=== PATIENT | female | born 1925 | race Caucasian/White ===

== ENCOUNTER 2016-09-14 08:49 | Observation (INO) | payer MEDICARE, OTHER ==
[2016-09-14] MEDS ORDERED: Sodium Chloride 0.9% 10 ML Syringe FLUSH PRN (09:00)
[2016-09-14 09:43] LABS: CHLORIDE,CL 108 mmol/L (98-107); SODIUM,NA 143 mmol/L (136-145)
[2016-09-14] MEDS ORDERED: Ketorolac 30 MG/ML SDV IVPUSH ONE (10:36)
[2016-09-14] MEDS ORDERED: Morphine 4 MG/ML Syringe IVPUSH ONE (10:49)
[2016-09-14] MEDS: Levofloxacin/Dextrose 5%-Water 500 MG in Premix Bag 1 BAG IV SCH (15:29)
[2016-09-14] MEDS ORDERED: Sodium Chloride 0.9% 100 ML IV SCH (16:00)
[2016-09-14] MEDS ORDERED: Aspirin 325 MG Tab.EC PO PRN (17:16)
[2016-09-14] MEDS: Enoxaparin 40 MG/0.4 ML Syringe SUBCUT SCH (19:45)
[2016-09-14] MEDS: Calcium Carbonate/Vitamin D3 1250 MG-200 Unit Tab PO SCH (19:46)
[2016-09-14] MEDS: Ibuprofen Susp 100 MG/5 ML 5 ML UD Cup PO PRN (19:51)
[2016-09-15] MEDS: oxyCODONE 5 MG Tab PO PRN (01:22)
[2016-09-15] MEDS: Levothyroxine 100 MCG Tab PO SCH (06:29)
[2016-09-15] MEDS: Ibuprofen Susp 100 MG/5 ML 5 ML UD Cup PO PRN ×2 (06:29→13:44)
[2016-09-15 06:58] LABS: CHLORIDE,CL 105 mmol/L (98-107); SODIUM,NA 141 mmol/L (136-145)
[2016-09-15] MEDS: Multivitamins with Iron/Calcium/Folic Acid/Minerals Tab PO SCH (07:37)
[2016-09-15] MEDS: predniSONE 10 MG Tab PO SCH (07:37)
[2016-09-15] MEDS: Calcium Carbonate/Vitamin D3 1250 MG-200 Unit Tab PO SCH ×2 (07:37→19:20)
[2016-09-15] MEDS: amLODIPine 10 MG Tab PO SCH (07:37)
[2016-09-15] MEDS: Potassium Chloride 20 MEQ Tab.ER PO SCH (07:37)
--- NOTE | 2016-09-15 12:11 | ER ---
Date of Service: 09/14/2016 SUBJECTIVE: Jenn presents to the emergency room with complaints of right-sided pain. The patient complained of superficial pain to her scalp, pain to the right side of her face, pain to her right lateral chest, right abdomen, and to the muscles of her right arm as well as the muscles to her right lower extremity. The patient also complained of some mild dyspnea. The patient had undergone surgical repair of a rectocele. Her back is extremely kyphotic, and on observing the patient, she is noted to when lying on her back, does lay primarily on her right side. She was experiencing this discomfort immediately after surgery. She states that she underwent the surgery on Tuesday and states that she was discharged on Tuesday. The discomfort got worse yesterday and today has been improving. Again, the patient has also been experiencing some mild dyspnea and weakness. She states she has not been experiencing any chest pain, nausea, vomiting, or diarrhea. She did undergo general anesthesia for her rectocele repair. PAST MEDICAL HISTORY: 1. Polymyalgia rheumatica. 2. Hypertension. 3. Hypothyroidism. 4. Chronic pancreatitis. MEDICATIONS: 1. Aspirin 650 mg p.o. q.4 hours p.r.n. 2. Amlodipine 10 mg p.o. at bedtime. 3. Prednisone 10 mg daily. 4. Klor-Con 20 mEq p.o. daily. 5. Naproxen sodium 440 mg p.o. b.i.d. p.r.n. 6. Levothyroxine 100 mcg p.o. at breakfast. ALLERGIES: Penicillin and procaine. REVIEW OF SYSTEMS: General: Denies any fever or chills. HEENT: No sore throat, rhinorrhea, or congestion. Respiratory: Complains of mild dyspnea and cough. Cardiac: Denies any substernal chest pain. No jaw, arm, neck, or back pain. GI: No nausea, vomiting, or diarrhea. No melena, hematochezia, or hematemesis. : Denies any dysuria. Musculoskeletal: Again, complains of myalgia to the right side of her body. This again involves the patient's scalp, the muscles of her right upper and lower extremity, to the right side of her chest wall, the right side of her abdomen. Neurologic: No fainting, blackouts, lightheadedness. PHYSICAL EXAMINATION: General: This is an 89-year-old female patient, who is in no acute distress. Vital Signs: Blood pressure is 164/70, pulse rate 75, temperature is 37.1, respiratory rate is 20, O2 saturation is 99% on oxygen per nasal cannula at 2 L/minute. Skin: Warm, pink, and dry. HEENT: Head is normocephalic atraumatic. Eyes, PERRLA. Extraocular movements are intact. Ears, TMs are clear. Mouth, oral mucosa is moist. Lungs: Clear to auscultation. Heart: Regular rate and rhythm. Normal S1, S2. No S3, S4, murmurs, clicks, or rubs. Abdomen: Soft, nontender. There is no hepatosplenomegaly or masses noted. Extremities: Without edema. Musculoskeletal: Again, the patient does complain of increased discomfort on palpation of both her upper and lower extremities as well as palpation to the muscles on the right side of her body. Neurologic: Cranial nerves 2 through 12 are intact. Her speech is fluent. Her gait is within normal limits. She has no pronator drift. No facial droop noted. No speech deficit noted. No pathological neurologic symptoms noted on physical examination. IMAGING DATA: EKG was obtained showing a sinus rhythm without any acute ST or T- wave abnormalities. LABORATORY DATA: WBC 4.5, hemoglobin is 10.0, platelets are 209. Coags, PT is 10.5, INR is 0.5. Chemistry, sodium is 143, potassium is 3.5, chloride is 108, bicarb is 28, BUN is 8, creatinine is 0.8. GFR is greater than 60. Glucose is 94, lactic acid is 0.6, calcium is 8.6, corrected calcium is 9.32. Total bilirubin is 0.5. AST is 21, ALT is 18, alkaline phosphatase is 69, CK is 52, CK-MB is 1.3. Total protein is 6.9, albumin is 3.1, TSH is 1.010. Urinalysis, she did have a slightly cloudy specimen, pH was 7.5, specific gravity is 1.015. She did have moderate occult blood, small leukocyte esterase, negative for nitrites, glucose, ketones, and protein. PA and lateral chest x-ray was obtained. She did have evidence of some increased hilar opacifications consistent with the start of bilateral infiltrates. She also did have a small left-sided pleural effusion. ASSESSMENT: 1. Postoperative musculoskeletal pain. 2. Community-acquired versus postoperative acquired pneumonia. PLAN: At this point, we will start the patient on Levaquin 500 mg IV daily. The patient's CPK is negative. Certainly, she could be experiencing some myalgias secondary to the use of succinylcholine during her surgery. This could have exacerbated her polymyalgia rheumatica. She is not experiencing any other focal neuro symptoms, so does not appear that this is a neurological issue and likely is secondary to positioning of the patient during surgery as she is unable to lie flat on her back. We will have PT and OT work with the patient. We will continue with IV antibiotics and rehydrate the patient. All questions were answered. MWK: 09/14/2016 15:33:35 MODL: 09/14/2016 22:33:24 /[id number]
--- NOTE | 2016-09-15 12:56 | ER ---
Date of Service: 09/14/2016 SUBJECTIVE: The patient presented to the emergency room with complaints of pain to her right side. She was transported by [facility] ambulance. The patient underwent rectocele repair on 09/10/2016 and was discharged on 09/12/2016. She states that she noticed immediately after surgery she was experiencing pain to the right side of her scalp, to her right upper extremity, and to her right lower extremity. She states that she is also experiencing some shortness of breath and weakness. To note, the patient did undergo general anesthesia and does have a history of polymyalgia rheumatica. The patient states that the discomfort did resolve somewhat, but has since redeveloped. She states that the discomfort began improving again approximately 24 hours ago. PAST MEDICAL HISTORY: MEDICATIONS: 1. Prednisone 10 mg daily. 2. Multivitamin one daily. 3. Calcium plus D 600/200 one b.i.d. 4. Amlodipine 10 mg daily. 5. Potassium chloride 20 mEq daily. 6. Levothyroxine 100 mcg p.o. at breakfast. 7. Aspirin 650 mg p.o. q.4 hours p.r.n. 8. Oxycodone 5 mg p.o. q.4 hours p.r.n. 9. Senna/docusate one p.o. daily p.r.n. 10.Ibuprofen 600 mg p.o. t.i.d. ALLERGIES: Penicillin, procaine, and meperidine. REVIEW OF SYSTEMS: General: Positive for weakness and fatigue. HEENT: Denies any sore throat, rhinorrhea, or congestion. Respiratory: Complains of mild dyspnea and mild cough. Cardiac: Denies any substernal chest pain. Denies any palpitations. Gastrointestinal: No nausea, vomiting, or diarrhea. No melena, hematochezia, or hematemesis. Genitourinary: Denies any dysuria. Musculoskeletal: Again, complains of myalgia to her right upper and lower extremity and to the muscles and soft tissue of her face and scalp. Neurologic: No fainting, blackouts, or lightheadedness. PHYSICAL EXAMINATION: General: An 89-year-old female patient who is in no acute distress. Vital Signs: Blood pressure is 164/70, temperature is 37.1, pulse rate is 75, and O2 saturation is 99% on oxygen per nasal cannula at 2 L/minute. She does desaturate into the mid to low 80s on room air. Skin: Warm, pale, and dry. HEENT. Head is normocephalic and atraumatic. No scalp or facial erythema, trauma, or ecchymosis noted. Eyes: PERRLA. Extraocular movements are intact. No evidence of any acute facial droop. 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 She has no other facial droop. Her eyebrow raise is symmetrical. Smile is symmetrical. Neck: Supple without masses. There is no lymphadenopathy. Spine: No midline C-spine, thoracic, or lumbar discomfort noted on palpation. Chest: No retractions noted. Lungs: Clear to auscultation. Heart: Regular rate and rhythm. Abdomen: Soft and nontender. There is no hepatosplenomegaly or masses noted. Extremities: Without edema. She has approximately 3/5 strength in both her upper and lower extremities. Again, she does complain of increased discomfort on palpation of the muscles of her upper and lower extremities. Neurovascular: Circulation, sensation, and motor function are all within normal limits in the distal portion of her extremities. Neurologic: Cranial nerves 2 through 12 are intact. Her speech is fluent. Her gait is within normal limits. Romberg is negative. She has no pronator drift. Negative neurologic examination. DIAGNOSTIC DATA: CT scan of the patient's brain and C-spine were obtained and were negative for acute pathology. CBC: WBCs 4.5, hemoglobin is 10.0, and platelets are 209. PT is 10.5. INR is 0.9. Chemistry: Sodium is 143, potassium is 3.5, chloride is 108, bicarbonate is 28, BUN is 8, creatinine is 0.8, GFR is greater than 60, and glucose is 94. Lactic acid is 0.6. Calcium is 8.6. Corrected calcium is 9.32. Total bilirubin is 0.5. AST is 21, ALT is 18, and alkaline phosphatase is 69. CK is 52 and CK-MB is 1.3. Total protein is 6.9. Albumin is 3.1. TSH is 1.01. Urinalysis reveals specific gravity of 1.015, pH of 7.5. Negative for protein, glucose, and ketones. Did have moderate occult blood. Negative nitrites and bilirubin. Small leukocyte esterase. PA and lateral chest x-ray was obtained. She did have evidence of what appears to be a developing bronchopneumonia. Blood cultures x2 were obtained and are pending. ASSESSMENT: 1. Community-acquired versus healthcare-acquired pneumonia. 2. Myalgias to right side of body secondary to polymyalgia rheumatica versus anesthesia-associated myalgia or patient positioning. PLAN: The patient will be admitted. She was started on Levaquin 500 mg p.o. daily. Did start her on normal saline at 125 an hour. We will consult PT and OT as well as Material Worker. At this point, we will admit her to observation as she is too weak to ambulate and do her ADLs on her own at home. The patient is a do not resuscitate/do not intubate. Please use as H\T\P. MWK: 09/15/2016 11:56:40 MODL: 09/15/2016 12:42:12 /[id number] MTDD
--- NOTE | 2016-09-15 12:58 | PCM.PN ---
- General Info Date of Service: 09/15/16 Admission Dx/Problem (Free Text): Community vs. post operative acquired pneumonia Functional Status: Reports: pain controlled, incentive spirometry Pain Score: 5 - Review of Systems General: Reports: Weakness HEENT: Reports: no symptoms Pulmonary: Reports: shortness of breath (still somewhat short of breath but she does state that this is lessened.) Cardiovascular: Reports: No Symptoms Gastrointestinal: Reports: No symptoms Genitourinary: Reports: no symptoms Musculoskeletal: Reports: shoulder pain (all pain is to the right side, from her head and neck to mid thigh), arm pain, back pain, leg pain Skin: Reports: no symptoms Neurological: Reports: No Symptoms Psychiatric: Reports: no symptoms - Patient Data Vitals - most recent: Last Vital Signs Temp 36.4 C 09/15/16 10:00 Pulse 79 09/15/16 10:00 Resp 16 09/15/16 10:00 BP 141/84 H 09/15/16 10:00 Pulse Ox 97 09/15/16 10:00 Weight - most recent: 68.039 kg I&O - last 24 hours: Intake & Output 09/14/16 09/15/16 09/15/16 22:59 06:59 14:59 Intake Total 250 400 690 Output Total 200 Balance 50 400 690 Lab Results last 24 hrs: Laboratory Results - last 24 hr 09/15/16 09/15/16 Range/Units 06:18 06:18 WBC 3.0 L (4.0-10.0) x10^3/uL RBC 3.34 L (4.00-5.50) x10^6/uL Hgb 9.5 L (12.0-16.0) g/dL Hct 28.5 L (33.0-47.0) % MCV 85.3 (78.0-93.0) fL MCH 28.4 (26.0-32.0) pg MCHC 33.3 (32.0-36.0) g/dL RDW Coeff of [place] 14.5 (10.0-15.0) % Plt Count 175 (130-400) x10^3/uL Sodium 141 (136-145) mmol/L Potassium 3.5 (3.5-5.1) mmol/L Chloride 105 (98-107) mmol/L Carbon Dioxide 29 (21-32) mmol/L BUN 9 (7-18) mg/dL Creatinine 0.8 (0.55-1.02) mg/dL Est Cr Clr Drug Dosing 38.44 mL/min Estimated GFR (MDRD) > 60 Glucose 83 (74-106) mg/dL Calcium 8.6 (8.5-10.1) mg/dL Corrected Calcium 9.64 (8.5-10.1) mg/dL Total Bilirubin 0.4 (0.2-1.0) mg/dL AST 18 (15-37) U/L ALT 16 (14-59) U/L Alkaline Phosphatase 60 (46-116) U/L Total Protein 6.3 L (6.4-8.2) g/dL Albumin 2.7 L (3.4-5.0) g/dL Globulin 3.6 Albumin/Globulin Ratio 0.75 Howie Results last 24 hrs: Microbiology 09/14/16 13:55 Anaerobic Blood Culture - Final Blood - Venous - Lab Draw Med Orders - Current: Current Medications Amlodipine Besylate (Norvasc) 10 mg PO DAILY [facility] Last Admin: 09/15/16 07:37 Dose: 10 mg Aspirin (Ecotrin) 650 mg PO Q4H PRN PRN Reason: Pain Calcium Carbonate (Calcium Carbonate/Vitamin D 1250 Mg-200 Unit) 1 tab PO BID [facility] Last Admin: 09/15/16 07:37 Dose: 1 tab Enoxaparin Sodium (Lovenox) 40 mg SUBCUT BEDTIME [facility] Last Admin: 09/14/16 19:45 Dose: 40 mg Levofloxacin/Dextrose 500 mg/ (Premix) 100 mls @ 100 mls/hr IV Q24H [facility] Last Admin: 09/14/16 15:29 Dose: 100 mls/hr Sodium Chloride (Normal Saline) 100 mls @ 100 mls/hr IV ASDIRECTED [facility] Last Admin: 09/14/16 17:10 Dose: 100 mls/hr Ibuprofen (Motrin 100 Mg/5 Ml Susp) 400 mg PO Q6H PRN PRN Reason: Pain Last Admin: 09/15/16 06:29 Dose: 400 mg Levothyroxine Sodium (Synthroid) 100 mcg PO ACBREAKFAST [facility] Last Admin: 09/15/16 06:29 Dose: 100 mcg Multivitamins/Minerals (Thera M Plus) 1 tab PO DAILY [facility] Last Admin: 04/12/17 07:37 Dose: 1 tab Oxycodone HCl (Oxycodone) 5 mg PO Q4H PRN PRN Reason: Pain Last Admin: 09/15/16 01:22 Dose: 5 mg Potassium Chloride (Klor-Con M20) 20 meq PO DAILY [facility] Last Admin: 09/15/16 07:37 Dose: 20 meq Prednisone (Prednisone) 10 mg PO DAILY [facility] Last Admin: 09/15/16 07:37 Dose: 10 mg Senna/Docusate Sodium (Senna Plus) 1 tab PO DAILY PRN PRN Reason: Constipation Last Admin: 09/15/16 08:04 Dose: 1 tab Sodium Chloride (Saline Flush) 10 ml FLUSH ASDIRECTED PRN PRN Reason: Keep Vein Open Last Admin: 09/15/16 07:45 Dose: 10 ml Discontinued Medications Ketorolac Tromethamine (Toradol) 30 mg IVPUSH ONETIME ONE Stop: 09/14/16 10:37 Last Admin: 09/14/16 10:53 Dose: 30 mg Morphine Sulfate (Morphine) 4 mg IVPUSH ONETIME ONE Stop: 09/14/16 10:50 Last Admin: 09/14/16 10:56 Dose: 4 mg - Exam General: alert, oriented, cooperative, no acute distress HEENT: Pupils equal, Pupils reactive, EOMI Neck: supple Lungs: Crackles (to bilateral bases) Cardiovascular: Regular Rate, Regular Rhythm, Murmurs (systolic murmur) Abdomen: bowel sounds present, soft, no tenderness, no distension Back Exam: decreased range of motion Extremities: no edema, normal pulses, no tenderness/swelling, no clubbing Peripheral Pulses: 2+: posterior tibial (L), posterior tibial (R), dorsalis pedis (L), dorsalis pedis (R) Skin: warm, dry, intact Neurological: no new focal deficit Psy/Mental Status: alert, normal affect, normal mood Physical Findings Comments:: Patient has long standing polymyalgia rheumatica and likely her pain is related to positioning during cystocele repair, as well as from her sedation for the procedure. Largely labs are unchanged from yesterday. - Problem List & Annotations (1) Community acquired pneumonia SNOMED Code(s): 478426684 Code(s): J18.9 - PNEUMONIA, UNSPECIFIED ORGANISM Status: Acute Priority: Medium Current Visit: Yes - Problem List Review Problem List Initiated/Reviewed/Updated: Yes - Assessment Assessment:: pneumonia healthcare vs. community acquired - Plan Plan:: Start on incentive spirometry ambulate Continue Levaquin 500 mg q 24h hours x 5 days OT and PT to continue to instruct on exercises and methods for pain reduction
[2016-09-15] MEDS ORDERED: Ibuprofen 200 MG Tab PO PRN (13:53)
[2016-09-15] MEDS: Levofloxacin/Dextrose 5%-Water 500 MG in Premix Bag 1 BAG IV SCH (14:13)
[2016-09-15] MEDS ORDERED: Magnesium Citrate Solution 296 ML Bottle PO PRN (17:01)
[2016-09-15] MEDS: Enoxaparin 40 MG/0.4 ML Syringe SUBCUT SCH (19:20)
[2016-09-16] MEDS: oxyCODONE 5 MG Tab PO PRN (04:00)
[2016-09-16] MEDS: Levothyroxine 100 MCG Tab PO SCH (06:06)
[2016-09-16] MEDS: predniSONE 10 MG Tab PO SCH (07:42)
[2016-09-16] MEDS: Multivitamins with Iron/Calcium/Folic Acid/Minerals Tab PO SCH (07:42)
[2016-09-16] MEDS: Potassium Chloride 20 MEQ Tab.ER PO SCH (07:42)
[2016-09-16] MEDS: Calcium Carbonate/Vitamin D3 1250 MG-200 Unit Tab PO SCH (07:42)
[2016-09-16] MEDS: amLODIPine 10 MG Tab PO SCH (07:43)
[2016-09-16 07:44] VITALS: BP 132/84
--- NOTE | 2016-09-16 16:57 | ER ---
Date of Service: 09/14/2016 This emergency room note may be used as a patient's admission H\T\P. MWK: 09/16/2016 07:23:54 MODL: 09/16/2016 11:22:45 /[id number]
--- NOTE | 2016-09-17 01:48 | DISCH ---
ADMITTING PROVIDER: Genaro Webb PA-C. DISCHARGING PROVIDER: Genaro Webb PA-C. ADMISSION DIAGNOSIS: Community-acquired pneumonia. DISCHARGE DIAGNOSIS: Community-acquired pneumonia. SUBJECTIVE: The patient was admitted on 09/14/2016 with weakness and fatigue. She did undergo rectocele repair on 09/10/2016 and was discharged on 09/12/2016. She was also explaining of myalgias to the right side of her body which was thought to be secondary to the patient positioning during surgery and subsequent hospitalization versus anesthesia associated myalgia. The patient does suffer from polymyalgia rheumatica. The patient was started on IV Levaquin and physical therapy was consulted. The patient is feeling much stronger and is ambulating with minimal difficulty. She was extremely constipated and was started on mag citrate yesterday by Clive Knight and did have a several large bowel movement throughout the night last night. The patient feels as though she is able to go home with the assistance of [facility]. PHYSICAL EXAMINATION: General: This is an 89-year-old female patient, in no acute distress. Vital Signs: Blood pressure is 168/69, pulse rate 75, temperature is 37, respiratory rate is 20, O2 saturations 96%. Skin: Warm, pink, and dry. HEENT: Head is normocephalic, atraumatic. Mouth, oral mucosa is moist. Lungs: Now experiencing some rhonchi in the mid lung gomez. Heart: Regular rate and rhythm. Abdomen: Soft, nontender. There is no hepatosplenomegaly noted. There is no masses noted. Extremities: Without edema. Neurologic: The patient is alert, oriented, answers all questions appropriately. DISPOSITION: Home with [facility]. MEDICATIONS: 1. Resume home medications. 2. Will add MiraLax 17 g once daily. 3. Also the patient will be continued on Levaquin 500 mg once daily for the next 8 days. MWK: 09/16/2016 07:42:53 MODL: 09/17/2016 01:41:14 /[id number]
== END 2016-09-16 10:55 | disposition home health service (06) ==
LOC: VM.ED 08:49 → VM.MS 12:00
PROVIDERS: ADMIT Physician Assistant; ATTEND Physician Assistant
DX: J18.9 Pneumonia, unspecified organism (principal); M35.3 Polymyalgia rheumatica; I10 Essential (primary) hypertension; E03.9 Hypothyroidism, unspecified; Z88.0 Allergy status to penicillin; Z88.4 Allergy status to anesthetic agent; Z88.5 Allergy status to narcotic agent; Z79.82 Long term (current) use of aspirin; Z79.899 Other long term (current) drug therapy
CPT/HCPCS: 36415; 70450; 71020; 72125; 80053; 81001; 82550; 82553; 83605; 84443; 85025; 85027; 85610; 87040; 93005; 94760; 96365; 96366; 96372; 96375; 97116; 97161; 97530; 99217; 99219; 99225; 99284; 99285; A9270; G0378; J1650; J1885; J1956; J2270; J7050; 96374

== ENCOUNTER 2016-12-23 19:32 | Observation (INO) | payer MEDICARE, OTHER ==
[2016-12-23] MEDS ORDERED: Sodium Chloride 0.9% 10 ML Syringe FLUSH PRN (19:52)
[2016-12-23] MEDS ORDERED: Levofloxacin/Dextrose 5%-Water 750 MG in Premix Bag 1 BAG IV ONE (20:13)
[2016-12-23] MEDS ORDERED: cefTRIAXone 2 GM Vial IVPUSH SCH (20:15)
[2016-12-23 20:39] LABS: CHLORIDE,CL 101 mmol/L (98-107); SODIUM,NA 136 mmol/L (136-145)
[2016-12-23] MEDS ORDERED: Morphine 4 MG/ML Syringe IVPUSH ONE (21:13)
[2016-12-23] MEDS ORDERED: Sodium Chloride 0.9% 1,000 ML IV ONE (23:36)
[2016-12-23] MEDS ORDERED: Morphine 4 MG/ML Syringe IVPUSH PRN (23:37)
[2016-12-23] MEDS ORDERED: Aspirin 81 MG Tab.Chew PO PRN (23:52)
[2016-12-24] MEDS: Enoxaparin 40 MG/0.4 ML Syringe SUBCUT SCH ×2 (00:06→09:16)
[2016-12-24] MEDS ORDERED: Aspirin 325 MG Tab.EC PO PRN (03:04)
[2016-12-24] MEDS: Levothyroxine 100 MCG Tab PO SCH (06:08)
[2016-12-24] MEDS: Calcium Citrate/Vitamin D3 315 MG-250 Unit Tab PO SCH ×2 (09:17→20:31)
[2016-12-24] MEDS: Potassium Chloride 20 MEQ Tab.ER PO SCH (09:17)
[2016-12-24] MEDS: predniSONE 10 MG Tab PO SCH (09:17)
[2016-12-24] MEDS: amLODIPine 10 MG Tab PO SCH (09:18)
[2016-12-24] MEDS: Multivitamin, Stress Formula with Zinc Tab PO SCH (09:18)
[2016-12-24] MEDS ORDERED: Acetaminophen/HYDROcodone 325-5 MG Tab PO PRN (11:01)
[2016-12-24] MEDS ORDERED: Ondansetron 4 MG/2 ML SDV IVPUSH PRN (11:02)
--- NOTE | 2016-12-24 13:26 | PN ---
Progress Note for ALYCE NEIL Date: 12/24/2016 Room #: VM.219 SUBJECTIVE: Alyce was admitted last evening with community-acquired pneumonia. Overall, she states she is not feeling any better this morning. She still continues to experience some myalgias and arthralgias and is very fatigued. The patient states that she is not experiencing any shortness of breath. She has been resisted this morning to working with PT and OT due to her discomfort. PHYSICAL EXAMINATION: General: This is an 89-year-old female patient, who is in no acute distress. Vital Signs: Blood pressure is 135/49, temp is 37.7, pulse rate is 82, respiratory rate is 20, O2 saturations 93% on room air. Skin: Warm, pink, and dry. Mouth, oral mucosa is moist. Lungs: Diminished in bases with crackles. Heart: Regular rate and rhythm. Abdomen: Soft and nontender. There is no hepatosplenomegaly noted. There are no masses noted. Extremities: Without edema. LABORATORY FINDINGS: Labs this morning. WBC is 5.7, hemoglobin is 8.9, platelets are 128. Sodium is 136, potassium is 3.5, chloride is 103, bicarb is 24, BUN is 15, creatinine is 0.9. Creatinine clearance is 36.59. GFR is 59. Glucose is 106. Calcium is 7.6. Troponin is negative at 0.024. ASSESSMENT: Community-acquired pneumonia. PLAN: We will continue with the IV Levaquin. Again, we will have PT and OT work with the patient. She is currently receiving a DVT prophylaxis in the form of Lovenox. She did request some aspirin for her body aches last night which she states has been helpful. Also, she also does have an order for morphine for severe pain and I did also an order for [place] 5/325 as needed for moderate pain. We will continue with flutter valve and incentive spirometry. All questions were answered. MWK: 12/24/2016 11:14:07 MODL: 12/24/2016 13:11:38 /[id number]
[2016-12-24] MEDS ORDERED: Levofloxacin/Dextrose 5%-Water 750 MG in Premix Bag 1 BAG IV SCH (20:00)
--- NOTE | 2016-12-24 20:07 | ER ---
Date of Service: 12/23/2016 SUBJECTIVE: Jenn presents to the emergency room with complaints of weakness, myalgias, and arthralgias as well as cough. The patient states that she has been feeling poorly for several days, worse since yesterday. She did have temperature of 101.7 at home. Her appetite has been poor. She has been having extreme difficulty getting up to use the bathroom and get back to bed. Daughter states that the patient has been alert and has not been experiencing any significant confusion. PAST MEDICAL HISTORY: 1. Hypertension. 2. History of pancreatitis. 3. Hypothyroidism. 4. Admission for community-acquired pneumonia in September. 5. Polymyalgia rheumatica, currently on prednisone. MEDICATIONS: 1. Prednisone 10 mg daily. 2. Amlodipine 10 mg daily. 3. Senna/docusate 1 daily p.r.n. 4. Potassium chloride 20 mEq daily. 5. Multivitamin 1 daily. 6. Levothyroxine 100 mcg p.o. at breakfast. 7. Calcium plus D 600/200 one p.o. b.i.d. 8. Aspirin 650 mg p.o. q.4 hours p.r.n. REVIEW OF SYSTEMS: General: Positive for fever, chills, weakness, and fatigue. HEENT: Denies any sore throat, rhinorrhea, or congestion. Chest: She does complain of pain in the posterior aspect of her lower chest, particularly with movement or taking a deep breath. Respiratory: Denies any significant shortness of breath, but she does have a cough that is nonproductive. Cardiac: Denies any substernal chest pain. No jaw, arm, neck, or back pain. GI: No nausea, vomiting, or diarrhea. No melena, hematochezia, or hematemesis. : Denies any dysuria. Musculoskeletal: No myalgias or arthralgias. Neurologic: No fainting, blackouts, or lightheadedness. PHYSICAL EXAMINATION: General: This is an 89-year-old female patient, who is in no acute distress. Vital Signs: Blood pressure is 173/86, pulse rate is 79, temperature is 36.7, O2 saturations 94% on room air. Skin: Warm, pink, and dry. HEENT: Head is normocephalic, atraumatic. Mouth, oral mucosa is somewhat dry. No erythema or exudate in hypopharynx. Neck: Supple. No masses. There is no lymphadenopathy. Lungs: Crackles in the bases and diminished. Heart: Regular rate and rhythm. Abdomen: Soft and nontender. There is no hepatosplenomegaly or masses noted. Extremities: Without edema. Neurologic: The patient is alert, oriented, and answers all questions appropriately. Her speech is fluent. Her gait was unable to be assessed. LABORATORY DATA: WBCs 8.4, hemoglobin is 9.9, platelets are 130. Coags; PT is 10.9, INR is 1.0. D-dimer is positive at 1.00. Chemistry; sodium is 136, potassium is 3.8, chloride is 101, bicarb is 26, BUN is 19, creatinine is 1.1. GFR is 47, glucose is 133, lactic acid is 0.8, calcium is 8.3, corrected calcium is 9.10. Total bilirubin is 0.3, AST is 19, ALT is 15, alkaline phosphatase is 90, CK is 40. Troponin is less than 0.017. C-reactive protein is 19.0, total protein is 7.2, albumin is 3.0. Urinalysis was obtained. She did have 100 protein, specific gravity was 1.030, pH was 6.0. She was negative for glucose and ketones, did have a trace of occult blood, negative nitrates, and bilirubin and did have a trace leukocyte esterase. She did have few bacteria, few mucus, and few squamous epithelials on her microscopic examination. Portable chest x-ray was obtained. She did have evidence of a left lower lobe infiltrate. The CT scan of the patient's chest was obtained due to positive D- dimer and pleuritic chest pain and cough. There was no evidence of any pulmonary embolism; however, the patient did have evidence of pneumonia. EMERGENCY ROOM COURSE: IV access was established. She was started on Levaquin 750 mg IV. She did have the positive D-dimer, so subsequently she was sent for CT scan which was negative. She was then given a liter of normal saline after the CT scan to decrease chances of diabetic nephropathy. She was given 4 mg of morphine for some chest wall discomfort. She remained stable in my care in the emergency room. ASSESSMENT: 1. Community-acquired pneumonia. 2. Pleurisy. PLAN: The patient will be admitted on observation status. I did speak with Jo-Ann Figueredo as the patient is going to care for her at [facility], and she stated that she was not in town to admit the patient. Subsequently, the patient will be admitted on observation status and if need be, will be transitioned to acute care if she is not ready for discharge in 48 hours. We will continue the IV Levaquin. Incentive spirometry and flutter valve to help with pulmonary toilet. PT and OT to evaluate. We will start her on Lovenox for DVT prophylaxis. The patient identifies herself as a code level 2 with no intubation or resuscitation. MWK: 12/24/2016 03:16:51 MODL: 12/24/2016 09:38:25 /[id number]
[2016-12-25] MEDS: Levothyroxine 100 MCG Tab PO SCH (06:03)
[2016-12-25] MEDS: Calcium Citrate/Vitamin D3 315 MG-250 Unit Tab PO SCH (09:14)
[2016-12-25] MEDS: predniSONE 10 MG Tab PO SCH (09:14)
[2016-12-25] MEDS: amLODIPine 10 MG Tab PO SCH (09:15)
[2016-12-25] MEDS: Multivitamin, Stress Formula with Zinc Tab PO SCH (09:15)
[2016-12-25] MEDS: Enoxaparin 40 MG/0.4 ML Syringe SUBCUT SCH (09:15)
[2016-12-25] MEDS: Potassium Chloride 20 MEQ Tab.ER PO SCH (09:15)
--- NOTE | 2016-12-25 14:07 | PCM.DCSUM1 ---
Discharge Summary - Hospital Course HPI Initial Comments: Patient presented to the ED at [facility] a couple of days ago with weakness , cough, chills, and fever. Patient was found to have CAP and admitted to observation for IV abx and fluids. - Discharge Data Discharge Date: 12/25/16 Discharge Disposition: Home, Self-Care 01 Condition: Good - Discharge Diagnosis/Problem(s) (1) CAP (community acquired pneumonia) SNOMED Code(s): 757418297 ICD Code: J18.9 - PNEUMONIA, UNSPECIFIED ORGANISM Status: Acute Priority : Medium Current Visit: Yes Onset Date: ~12/23/16 (2) Fever SNOMED Code(s): 482922070 ICD Code: R50.9 - FEVER, UNSPECIFIED Status: Resolved Priority: Medium Current Visit: Yes Onset Date: ~12/23/16 Qualifiers: Fever type: unspecified Qualified Code(s): R50.9 - Fever, unspecified (3) Weakness SNOMED Code(s): 75334652 ICD Code: R53.1 - WEAKNESS Status: Resolved Priority: Medium Current Visit: Yes Onset Date: ~12/23/16 - Patient Summary/Data Operative Procedure(s) Performed: None Consults: Consultations 12/23/16 23:32 PT Evaluation and Treatment [CONS] Routine 12/23/16 23:33 OT Evaluation and Treatment [CONS] Routine Labs Pending at D/C: None Hospital Course: Patient did well during her observation stay. Patient remained hemodynamically stable and afebrile. Tolerated diet. No issues with pain. Able to ambulate in hallways with walker. No troubles with urination or BM's. - Patient Instructions Diet: Regular Diet as Tolerated Activity: Rest and Relax Today Driving: Do Not Drive Showering/Bathing: May Shower Notify Provider of: Fever, Increased Pain, Nausea and/or Vomiting - Discharge Plan Prescriptions/Med Rec: Doxycycline [Vibramycin] 100 mg PO Q12HR #9 cap Home Medications: Home Meds Aspirin 650 mg PO Q4H PRN 06/24/16 [History] Levothyroxine [Synthroid] 100 mcg PO ACBREAKFAST 06/24/16 [History] Potassium Chloride [Klor-Con M20] 20 meq PO DAILY 06/24/16 [History] amLODIPine [Norvasc] 10 mg PO DAILY 06/24/16 [History] Calcium Carbonate/Vitamin D3 [Calcium 600 + Vit D 200] 1 each PO BID 09/14/16 [ History] Multivitamin [Multivitamins] 1 each PO DAILY 09/14/16 [History] Sennosides/Docusate Sodium [Senna-Docusate Sodium] 1 each PO DAILY PRN 09/14/16 [History] predniSONE 10 mg PO DAILY 09/14/16 [History] Doxycycline [Vibramycin] 100 mg PO Q12HR #9 cap 12/25/16 [Rx] Patient Handouts: Community-Acquired Pneumonia, Adult Referrals: Haley Medrano [employer] [facility] [Primary Care Provider] - - Discharge Summary/Plan Comment DC Time >30 min.: Yes - General Info Date of Service: 12/25/16 Admission Dx/Problem (Free Text: CAP Weakness Fever Functional Status: Reports: Pain Controlled, Tolerating Diet, Ambulating, Urinating Numeric/FACES Score: 0 - Review of Systems General: Reports: No Symptoms Pulmonary: Reports: Cough, Sputum. Denies: Shortness of Breath Cardiovascular: Denies: Chest Pain, Palpitations Gastrointestinal: Denies: Abdominal Pain, Nausea, Vomiting Skin: Reports: No Symptoms Neurological: Reports: No Symptoms - Patient Data Vitals - Most Recent: Last Vital Signs Temp 36.6 C 12/25/16 10:00 Pulse 69 12/25/16 10:00 Resp 18 12/25/16 10:00 BP 131/46 L 12/25/16 10:00 Pulse Ox 97 12/25/16 10:00 Weight - Most Recent: 58.967 kg I&O - Last 24 hours: Intake & Output 12/24/16 12/25/16 12/25/16 22:59 06:59 14:59 Intake Total 440 447 540 Output Total 525 1400 Balance -85 -953 540 Lab Results - Last 24 hrs: Laboratory Results - last 24 hr 12/25/16 12/25/16 Range/Units 07:09 07:09 WBC 3.7 L (4.0-10.0) x10^3/uL RBC 3.13 L (4.00-5.50) x10^6/uL Hgb 8.8 L (12.0-16.0) g/dL Hct 26.1 L (33.0-47.0) % MCV 83.4 (78.0-93.0) fL MCH 28.1 (26.0-32.0) pg MCHC 33.7 (32.0-36.0) g/dL RDW Coeff of [place] 15.7 H (10.0-15.0) % Plt Count 167 (130-400) x10^3/uL Neut % (Auto) 68.7 (50.0-80.0) % Lymph % (Auto) 18.0 L (25.0-50.0) % [place] % (Auto) 12.3 H (2.0-11.0) % Eos % (Auto) 0.5 (0.0-4.0) % Baso % (Auto) 0.5 (0.2-1.2) % Sodium 141 (136-145) mmol/L Potassium 3.7 (3.5-5.1) mmol/L Chloride 107 (98-107) mmol/L Carbon Dioxide 26 (21-32) mmol/L BUN 15 (7-18) mg/dL Creatinine 1.0 (0.55-1.02) mg/dL Est Cr Clr Drug Dosing 32.93 mL/min Estimated GFR (MDRD) 52 Glucose 82 (74-106) mg/dL Calcium 8.7 (8.5-10.1) mg/dL Corrected Calcium 9.90 (8.5-10.1) mg/dL Total Bilirubin 0.3 (0.2-1.0) mg/dL AST 15 (15-37) U/L ALT 12 L (14-59) U/L Alkaline Phosphatase 79 (46-116) U/L Total Protein 6.7 (6.4-8.2) g/dL Albumin 2.5 L (3.4-5.0) g/dL Globulin 4.2 Albumin/Globulin Ratio 0.60 Med Orders - Current: Current Medications Hydrocodone Bitart/Acetaminophen ([place] 325-5 Mg) 1 tab PO Q4H PRN PRN Reason: Pain Amlodipine Besylate (Norvasc) 10 mg PO DAILY [facility] Last Admin: 12/25/16 09:15 Dose: 10 mg Aspirin (Ecotrin) 650 mg PO Q4H PRN PRN Reason: Pain Last Admin: 12/24/16 06:07 Dose: 650 mg Calcium Citrate (Calcium Citrate + D) 2 tab PO BID [facility] Last Admin: 12/25/16 09:14 Dose: 2 tab Enoxaparin Sodium (Lovenox) 40 mg SUBCUT DAILY [facility] Last Admin: 12/25/16 09:15 Dose: 40 mg Levofloxacin/Dextrose 750 mg/ (Premix) 150 mls @ 100 mls/hr IV Q24H [facility] Last Admin: 12/24/16 20:32 Dose: 100 mls/hr Levothyroxine Sodium (Synthroid) 100 mcg PO ACBREAKFAST [facility] Last Admin: 12/25/16 06:03 Dose: 100 mcg Morphine Sulfate (Morphine) 4 mg IVPUSH Q4H PRN PRN Reason: Pain Ondansetron HCl (Zofran) 4 mg IVPUSH Q8H PRN PRN Reason: Nausea Potassium Chloride (Klor-Con M20) 20 meq PO DAILY [facility] Last Admin: 12/25/16 09:15 Dose: 20 meq Prednisone (Prednisone) 10 mg PO DAILY [facility] Last Admin: 12/25/16 09:14 Dose: 10 mg Senna/Docusate Sodium (Senna Plus) 1 tab PO DAILY PRN PRN Reason: Constipation Sodium Chloride (Saline Flush) 10 ml FLUSH ASDIRECTED PRN PRN Reason: Keep Vein Open Last Admin: 12/23/16 20:29 Dose: 10 ml Vitamin B Complex/Vit C/Vit E/Zinc (Stress Formula With Zinc) 1 tab PO DAILY [facility] Last Admin: 12/25/16 09:15 Dose: 1 tab Discontinued Medications Aspirin (Aspirin) 324 mg PO QID PRN PRN Reason: Pain (moderate 4-6) Last Admin: 12/24/16 00:07 Dose: 324 mg Ceftriaxone Sodium (Rocephin) 2 gm IVPUSH DAILY [facility] Levofloxacin/Dextrose 750 mg/ (Premix) 150 mls @ 100 mls/hr IV ONETIME ONE Stop: 12/23/16 21:42 Last Admin: 12/23/16 20:30 Dose: 100 mls/hr Sodium Chloride (Normal Saline) 1,000 mls @ 1,000 mls/hr IV .BOLUS ONE Stop: 12/24/16 00:35 Last Admin: 12/23/16 23:50 Dose: 1,000 mls/hr Morphine Sulfate (Morphine) 4 mg IVPUSH ONETIME ONE Stop: 12/23/16 21:14 Last Admin: 12/23/16 21:24 Dose: 4 mg - Exam General: Reports: alert, oriented Neck: Reports: supple Lungs: Reports: Clear to Auscultation, Normal Respiratory Effort Cardiovascular: Reports: Regular Rhythm, No Murmurs GI/Abdominal Exam: Normal Bowel Sounds, Soft, Non-Tender Skin: Reports: warm, dry, intact Neurological: Reports: no new focal deficit *Q Meaningful Use (DIS) - VTE *Q VTE Criteria *Q: - Stroke *Q Stroke Criteria *Q: - AMI *Q AMI Criteria *Q:
[2016-12-25] MEDS ORDERED: Take Home: Doxycycline 100 MG Tab, 4 Tab Pack PO ONE (14:12)
[2016-12-25] MEDS ORDERED: Doxycycline 100 MG Cap PO ONE (14:13)
[2016-12-25 14:36] VITALS: BP 140/61
--- NOTE | 2016-12-29 11:50 | ER ---
Date of Service: 12/23/2016 ADDENDUM: This patient's ER note may be used as her admission H and P. MWK: 12/29/2016 07:39:50 MODL: 12/29/2016 08:08:34 /[id number]
== END 2016-12-25 15:05 | disposition home or self-care (01) ==
LOC: VM.ED 19:32 → VM.MS 22:02
PROVIDERS: ADMIT Physician Assistant; ATTEND Physician Assistant
DX: J18.9 Pneumonia, unspecified organism (principal); R09.1 Pleurisy; I10 Essential (primary) hypertension; E03.9 Hypothyroidism, unspecified; M35.3 Polymyalgia rheumatica; Z79.82 Long term (current) use of aspirin; Z79.899 Other long term (current) drug therapy
CPT/HCPCS: 36415; 71010; 71275; 80048; 80053; 81001; 82550; 83605; 84484; 85025; 85027; 85379; 85610; 86140; 87040; 87804; 93005; 94667; 94760; 96361; 96365; 96366; 96372; 96375; 97165; 99285; A9270; G0378; J1650; J1956; J2270; J7030; J7050; 99217; 99220; 99226